=== PATIENT | female | born 1940 | race Caucasian/White ===

== ENCOUNTER 2018-01-19 11:13 | Inpatient (IN) | payer OTHER ==
[~2018-01-19] VITALS: Ht 175.3 cm; Wt 52.7 kg
[2018-01-19] MEDS ORDERED: methylPREDNISolone SOD SUCC 125 MG/2 ML VL ONE (11:19)
[2018-01-19] MEDS ORDERED: cefTRIAXone 1GM/10ml IVPUSH 10 ML IV ONE (12:00)
[2018-01-19] MEDS ORDERED: ALBUTEROL SULF 2.5 MG/0.5ML(0.5%) NEB SOLN HHN ONE (12:00)
[2018-01-19] MEDS ORDERED: IPRATROPIUM BROM 0.5 MG/2.5ML INH SOL HHN ONE (12:00)
[2018-01-19] MEDS ORDERED: methylPREDNISolone SOD SUCC 125 MG/2 ML VL IV ONE (12:30)
[2018-01-19] MEDS ORDERED: SODIUM CHLORIDE 0.9% 1,000 ML IV ONE (12:30)
[2018-01-19 12:37] LABS: Alanine Aminotransferase 30 U/L (13-56); Albumin 3.2 g/dL (3.4-5.0); Anion Gap 8 (5-15); Aspartate Aminotransferase 26 U/L (15-37); BUN/Creatinine Ratio 21.1; Blood Urea Nitrogen 26 mg/dL (7-18); Calcium 8.9 mg/dL (8.5-10.1); Carbon Dioxide 26 mmol/L (21-32); Chloride 102 mmol/L (98-107); GFR African American 54 mL/min; GFR Non-African American 45 mL/min; Glucose 176 mg/dL (74-106); Magnesium 2.1 mg/dL (1.6-2.6); Potassium 4.2 mmol/L (3.5-5.1); Sodium 136 mmol/L (136-145)
[2018-01-19 12:38] LABS: Basophils # (auto) 0 uL; Basophils % (auto) 0.3 % (0.0-2.0); Eosinophils # (auto) 0 uL; Eosinophils % (auto) 0.1 % (0.0-7.0); Hematocrit 37.5 % (36.0-46.0); Hemoglobin 12.4 g/dL (12.2-16.2); Lymphocytes # (auto) 0.4 uL; Lymphocytes % (auto) 3.7 % (10.0-50.0); Mean Corpuscular Hemoglobin 31.9 pg (28.0-32.0); Mean Corpuscular Volume 96.8 fL (80.0-100.0); Monocytes # (auto) 0.3 uL; Monocytes % (auto) 2.5 % (0.0-12.0); Neutrophils # (auto) 9.9 uL; Neutrophils % (auto) 93.4 % (37.0-80.0); Nucleated Red Blood Cells % 0.2 %; Platelet Count (auto) 134 10^3/uL (140-450); Red Blood Cells 3.87 10^6/uL (4.0-5.20); Red Cell Distribution Width 15.6 % (11.8-14.3); White Blood Cell 10.6 10^3/uL (4.4-10.8)
[2018-01-19 12:42] LABS: Alkaline Phosphatase 94 U/L (45-117); Bilirubin, Total 2.7 mg/dL (0.2-1.0)
[2018-01-19 12:56] LABS: Lactic Acid w/Reflex 2.1 mmol/L (0.4-2.0)
[2018-01-19] MEDS ORDERED: ALBUTEROL SULF 2.5 MG/0.5ML(0.5%) NEB SOLN NEB PRN (15:00)
[2018-01-19] MEDS ORDERED: OSELTAMIVIR 75 MG CAP PO ONE (15:00)
[2018-01-19] MEDS ORDERED: NITROGLYCERIN 0.4 MG SL TAB SL PRN (15:00)
[2018-01-19] MEDS ORDERED: DEXTROSE (50%) 50ML SYRG IV PRN (15:00)
[2018-01-19] MEDS ORDERED: MORPHINE SULFATE 4 MG/ML SYR/VIAL IV PRN ×2 (15:00)
[2018-01-19] MEDS ORDERED: PROMETHAZINE HCL 25 MG/ML 1ML IV PRN (15:00)
[2018-01-19] MEDS ORDERED: HYDROcodone-ACET 5/325MG TAB PO PRN (15:00)
[2018-01-19] MEDS ORDERED: ACETAMINOPHEN 500 MG TAB PO PRN (15:00)
[2018-01-19] MEDS ORDERED: LACTULOSE 20Gm/30ML SOLN PO PRN (15:00)
[2018-01-19] MEDS ORDERED: OSELTAMIVIR 30 MG CAP PO ONE (15:15)
[2018-01-19] MEDS: SODIUM CHLORIDE 0.9% 1,000 ML IV SCH (15:20)
[2018-01-19] MEDS: ASPirin 81 mg TAB PO SCH (15:29)
[2018-01-19 15:33] LABS: Urine Amorphous Crystal FEW /hpf (None Seen); Urine Bacteria MOD /hpf (None Seen); Urine Blood Negative /uL (Negative); Urine Mucus FEW (None Seen); Urine Specific Gravity 1.022 (1.001-1.035); Urine WBC 4 /hpf (0 - 5)
[2018-01-19] MEDS: AZITHROMYCIN 500MG/ 250ML 250 ML IV SCH (15:46)
[2018-01-19 17:03] VITALS: BP 85/61
[2018-01-19] MEDS ORDERED: TIOT17SP IN (17:10)
[2018-01-19] MEDS ORDERED: LEV100T PO (17:10)
[2018-01-19] MEDS ORDERED: [UNRECOGNIZED DRUG - CODE] PO (17:10)
[2018-01-19] MEDS ORDERED: MULT1CHW52 PO (17:10)
[2018-01-19] MEDS ORDERED: ALLO300T2 PO (17:10)
[2018-01-19] MEDS ORDERED: DONE10TA40 PO (17:10)
[2018-01-19] MEDS ORDERED: DIGO0.1262 PO (17:10)
[2018-01-19] MEDS ORDERED: PRAV20TA3 PO (17:10)
[2018-01-19] MEDS ORDERED: QUET100T46 PO (17:10)
[2018-01-19] MEDS ORDERED: LORA-154 PO (17:10)
[2018-01-19] MEDS ORDERED: MOME100A INH (17:11)
[2018-01-19] MEDS ORDERED: DIGOXIN 0.125 MG TAB PO ONE (17:30)
[2018-01-19] MEDS ORDERED: ENOXAPARIN SOD 60 MG/0.6 ML SYRINGE SC ONE (17:45)
[2018-01-19] MEDS: ACCU-CHEK COMFORT CURVE STRIP VI SCH (18:26)
[2018-01-19] MEDS: ALBUTEROL SULF 2.5 MG/0.5ML(0.5%) NEB SOLN NEB SCH (18:51)
[2018-01-19] MEDS: IPRATROPIUM BROM 0.5 MG/2.5ML INH SOL NEB SCH (18:51)
[2018-01-19 19:45] VITALS: BP 85/61
[2018-01-19] MEDS: CARVEDILOL 3.125 MG TAB PO SCH (21:49)
[2018-01-19] MEDS ORDERED: OSELTAMIVIR 75 MG CAP PO SCH (22:00)
[2018-01-19 23:11] VITALS: BP 96/63
[2018-01-20 05:39] VITALS: BP 105/77
[2018-01-20] MEDS: ALBUTEROL SULF 2.5 MG/0.5ML(0.5%) NEB SOLN NEB SCH ×5 (06:37→23:49)
[2018-01-20] MEDS: IPRATROPIUM BROM 0.5 MG/2.5ML INH SOL NEB SCH ×5 (06:38→23:49)
[2018-01-20 06:59] LABS: Basophils # (auto) 0 uL; Basophils % (auto) 0.3 % (0.0-2.0); Eosinophils # (auto) 0 uL; Hematocrit 33.2 % (36.0-46.0); Hemoglobin 10.9 g/dL (12.2-16.2); Lymphocytes # (auto) 0.2 uL; Lymphocytes % (auto) 1.9 % (10.0-50.0); Mean Corpuscular Hemoglobin 32.1 pg (28.0-32.0); Mean Corpuscular Hgb Conc. 32.8 g/dL (32.0-36.0); Mean Corpuscular Volume 98.1 fL (80.0-100.0); Monocytes # (auto) 0.6 uL; Monocytes % (auto) 4.9 % (0.0-12.0); Neutrophils # (auto) 11.9 uL; Neutrophils % (auto) 92.9 % (37.0-80.0); Platelet Count (auto) 116 10^3/uL (140-450); Red Blood Cells 3.39 10^6/uL (4.0-5.20); White Blood Cell 12.8 10^3/uL (4.4-10.8)
[2018-01-20 07:36] LABS: Albumin 2.6 g/dL (3.4-5.0); BUN/Creatinine Ratio 25.8; Bilirubin, Total 1.3 mg/dL (0.2-1.0); Calcium 8.6 mg/dL (8.5-10.1); Potassium 4.8 mmol/L (3.5-5.1); Total Protein 6.8 g/dL (6.4-8.2)
[2018-01-20] MEDS: ACCU-CHEK COMFORT CURVE STRIP VI SCH ×4 (07:51→19:02)
[2018-01-20] MEDS: SODIUM CHLORIDE 0.9% 1,000 ML IV SCH ×2 (07:51→17:27)
[2018-01-20 08:27] VITALS: BP 106/50
[2018-01-20] MEDS: cefTRIAXone 1GM/10ml IVPUSH 10 ML IV SCH (09:31)
[2018-01-20] MEDS: DIGOXIN 0.125 MG TAB PO SCH (09:51)
[2018-01-20] MEDS: ASPirin 81 mg TAB PO SCH (09:51)
[2018-01-20] MEDS: AZITHROMYCIN 500MG/ 250ML 250 ML IV SCH (09:52)
[2018-01-20] MEDS: ENOXAPARIN SOD 60 MG/0.6 ML SYRINGE SC SCH ×2 (09:53→21:30)
[2018-01-20] MEDS ORDERED: OSELTAMIVIR 30 MG CAP PO SCH (10:00)
[2018-01-20] MEDS: CARVEDILOL 3.125 MG TAB PO SCH ×2 (10:00→22:00)
[2018-01-20 12:35] VITALS: BP 97/64
[2018-01-20] MEDS: LORazepam 0.5 MG TAB PO PRN ×2 (14:46→21:28)
[2018-01-20 16:39] VITALS: BP_SYST 118; BP_SYST 89; BP_DIAS 71; BP_DIAS 73
[2018-01-20] MEDS: BUDESONIDE (INHALATION) 0.5 MG/2 ML NEB NEB SCH (18:43)
[2018-01-20 22:00] VITALS: BP 98/61
[2018-01-21] VITALS (15 sets, daily range): BP systolic 98–128; BP diastolic 42–79
[2018-01-21] MEDS: TEMAZEPAM 15 MG CAP PO PRN (01:15)
[2018-01-21] MEDS ORDERED: AMIODARONE HCL 150 MG in D5W 5% 100 ML IV ONE (02:00)
[2018-01-21] MEDS ORDERED: AMIODARONE HCL 900 MG in DEXTROSE 500 ML IV SCH (02:00)
[2018-01-21] MEDS ORDERED: AMIODARONE HCL 900 MG IV ONE (02:28)
[2018-01-21] MEDS ORDERED: AMIODARONE HCL (50 MG/ ML) 3 ML VIAL IV ONE (02:28)
[2018-01-21] MEDS: ACCU-CHEK COMFORT CURVE STRIP VI SCH ×4 (06:00→17:28)
[2018-01-21] MEDS: SODIUM CHLORIDE 0.9% 1,000 ML IV SCH ×2 (06:34→20:07)
[2018-01-21] MEDS: ALBUTEROL SULF 2.5 MG/0.5ML(0.5%) NEB SOLN NEB SCH (06:38)
[2018-01-21] MEDS: BUDESONIDE (INHALATION) 0.5 MG/2 ML NEB NEB SCH ×2 (06:38→18:36)
[2018-01-21] MEDS: IPRATROPIUM BROM 0.5 MG/2.5ML INH SOL NEB SCH ×4 (06:38→23:33)
[2018-01-21] MEDS: AMIODARONE HCL 900 MG in DEXTROSE 500 ML IV SCH (08:00)
[2018-01-21] MEDS: cefTRIAXone 1GM/10ml IVPUSH 10 ML IV SCH (08:55)
[2018-01-21] MEDS: CARVEDILOL 3.125 MG TAB PO SCH ×2 (10:00→21:30)
[2018-01-21] MEDS: AZITHROMYCIN 500MG/ 250ML 250 ML IV SCH (10:05)
[2018-01-21] MEDS: ASPirin 81 mg TAB PO SCH (10:09)
[2018-01-21] MEDS: DIGOXIN 0.125 MG TAB PO SCH (10:10)
[2018-01-21] MEDS: MULTIPLE VITAMINS W/ MINERALS TAB PO SCH (10:10)
[2018-01-21] MEDS: CALCIUM W/VIT D (600MG/400IU) TAB PO SCH (10:10)
[2018-01-21] MEDS: PRAVASTATIN SODIUM 20 MG TAB PO SCH (10:11)
[2018-01-21] MEDS: ENOXAPARIN SOD 60 MG/0.6 ML SYRINGE SC SCH ×2 (10:11→21:30)
[2018-01-21] MEDS: QUEtiapine FUMARATE 100 MG TAB PO SCH (10:11)
[2018-01-21] MEDS: ALLOPURINOL 300 MG TAB PO SCH (10:11)
[2018-01-21] MEDS: LEVOTHYROXINE SODIUM 50 MCG TAB PO SCH (10:11)
[2018-01-21] MEDS: LORazepam 0.5 MG TAB PO PRN (12:04)
[2018-01-21] MEDS ORDERED: guaiFENesin 200 MG/10 ML UD PO PRN (16:30)
[2018-01-22] VITALS (8 sets, daily range): BP systolic 105–139; BP diastolic 59–71
[2018-01-22] MEDS ORDERED: FUROSEMIDE 20 MG/2 ML VIAL IV ONE ×2 (00:45→02:00)
[2018-01-22] MEDS: ACCU-CHEK COMFORT CURVE STRIP VI SCH ×4 (02:06→18:07)
[2018-01-22] MEDS: BUDESONIDE (INHALATION) 0.5 MG/2 ML NEB NEB SCH ×2 (06:24→19:20)
[2018-01-22] MEDS: IPRATROPIUM BROM 0.5 MG/2.5ML INH SOL NEB SCH ×3 (06:24→19:20)
[2018-01-22] MEDS: AMIODARONE HCL 900 MG in DEXTROSE 500 ML IV SCH (08:58)
[2018-01-22] MEDS: SODIUM CHLORIDE 0.9% 1,000 ML IV SCH ×2 (09:27→22:47)
[2018-01-22] MEDS: AZITHROMYCIN 500MG/ 250ML 250 ML IV SCH (09:49)
[2018-01-22] MEDS: CALCIUM W/VIT D (600MG/400IU) TAB PO SCH (09:50)
[2018-01-22] MEDS: MULTIPLE VITAMINS W/ MINERALS TAB PO SCH (09:50)
[2018-01-22] MEDS: ENOXAPARIN SOD 60 MG/0.6 ML SYRINGE SC SCH ×2 (09:50→21:12)
[2018-01-22] MEDS: PRAVASTATIN SODIUM 20 MG TAB PO SCH (09:50)
[2018-01-22] MEDS: ASPirin 81 mg TAB PO SCH (09:51)
[2018-01-22] MEDS: CARVEDILOL 3.125 MG TAB PO SCH ×2 (09:51→22:00)
[2018-01-22] MEDS: LEVOTHYROXINE SODIUM 50 MCG TAB PO SCH (09:52)
[2018-01-22] MEDS: ALLOPURINOL 300 MG TAB PO SCH (09:52)
[2018-01-22] MEDS: DIGOXIN 0.125 MG TAB PO SCH (09:52)
[2018-01-22] MEDS: QUEtiapine FUMARATE 100 MG TAB PO SCH (09:52)
[2018-01-22] MEDS: cefTRIAXone 1GM/10ml IVPUSH 10 ML IV SCH (09:53)
[2018-01-22 13:50] LABS: Basophils # (auto) 0 uL; Basophils % (auto) 0.1 % (0.0-2.0); Eosinophils # (auto) 0.1 uL; Eosinophils % (auto) 0.7 % (0.0-7.0); Hematocrit 34.2 % (36.0-46.0); Hemoglobin 11.1 g/dL (12.2-16.2); Lymphocytes # (auto) 0.6 uL; Lymphocytes % (auto) 5.4 % (10.0-50.0); Mean Corpuscular Hemoglobin 31.2 pg (28.0-32.0); Mean Corpuscular Hgb Conc. 32.5 g/dL (32.0-36.0); Monocytes # (auto) 0.7 uL; Monocytes % (auto) 6.8 % (0.0-12.0); Platelet Count (auto) 170 10^3/uL (140-450); Red Blood Cells 3.56 10^6/uL (4.0-5.20); Red Cell Distribution Width 15.5 % (11.8-14.3); White Blood Cell 10.3 10^3/uL (4.4-10.8)
[2018-01-22] MEDS: TEMAZEPAM 15 MG CAP PO PRN (21:13)
[2018-01-23] VITALS (7 sets, daily range): BP systolic 106–120; BP diastolic 56–81
[2018-01-23 05:29] LABS: Basophils # (auto) 0 uL; Basophils % (auto) 0.2 % (0.0-2.0); Eosinophils # (auto) 0.1 uL; Eosinophils % (auto) 1.3 % (0.0-7.0); Lymphocytes # (auto) 0.6 uL; Lymphocytes % (auto) 7.5 % (10.0-50.0); Mean Corpuscular Hemoglobin 32.4 pg (28.0-32.0); Mean Corpuscular Hgb Conc. 33.5 g/dL (32.0-36.0); Mean Corpuscular Volume 96.8 fL (80.0-100.0); Monocytes # (auto) 0.8 uL; Monocytes % (auto) 10.1 % (0.0-12.0); Neutrophils % (auto) 80.9 % (37.0-80.0); Nucleated Red Blood Cells % 0.2 %; Platelet Count (auto) 153 10^3/uL (140-450); Red Blood Cells 3.41 10^6/uL (4.0-5.20); Red Cell Distribution Width 15.2 % (11.8-14.3); White Blood Cell 7.4 10^3/uL (4.4-10.8)
[2018-01-23 05:49] LABS: BUN/Creatinine Ratio 38.4; Calcium 8.3 mg/dL (8.5-10.1); Potassium 3.9 mmol/L (3.5-5.1)
[2018-01-23] MEDS: ACCU-CHEK COMFORT CURVE STRIP VI SCH ×4 (06:00→17:41)
[2018-01-23 06:49] LABS: INR 1.05 (0.9-1.15); Partial Thromboplastin Time 32.3 sec (22.64-33.71); Prothrombin Time 11.5 sec (9.37-12.3)
[2018-01-23] MEDS: BUDESONIDE (INHALATION) 0.5 MG/2 ML NEB NEB SCH ×2 (07:07→19:41)
[2018-01-23] MEDS: IPRATROPIUM BROM 0.5 MG/2.5ML INH SOL NEB SCH ×3 (07:07→19:40)
[2018-01-23] MEDS: cefTRIAXone 1GM/10ml IVPUSH 10 ML IV SCH (09:06)
[2018-01-23] MEDS: ENOXAPARIN SOD 60 MG/0.6 ML SYRINGE SC SCH ×2 (10:00→22:10)
[2018-01-23] MEDS: CARVEDILOL 3.125 MG TAB PO SCH ×2 (10:00→22:00)
[2018-01-23] MEDS: AZITHROMYCIN 500MG/ 250ML 250 ML IV SCH (10:38)
[2018-01-23] MEDS: AMIODARONE HCL 900 MG in DEXTROSE 500 ML IV SCH (10:50)
[2018-01-23] MEDS ORDERED: NALOXONE HCL 0.4 MG/ML VIAL ONE (11:52)
[2018-01-23] MEDS ORDERED: EPINEPHrine HCL 1 MG/1 ML AMP ONE (11:52)
[2018-01-23] MEDS ORDERED: FLUMAZENIL 0.1 MG/ML INJ 10ML MDV IV ONE (11:52)
[2018-01-23] MEDS ORDERED: BENZOCAINE (DENTAL) 20 % SPRAY 60ML MT ONE (11:52)
[2018-01-23] MEDS ORDERED: LIDOCAINE 2%HCL (LOCAL ANESTH.) INJ 20ML MDV ONE ×2 (11:53→11:56)
[2018-01-23] MEDS ORDERED: LIDOCAINE HCL 2% TOP JELLY 5ML TOP ONE (11:53)
[2018-01-23] MEDS ORDERED: MIDAZOLAM HCL 5 MG/ML-1ML VIAL ONE (11:58)
[2018-01-23] MEDS: SODIUM CHLORIDE 0.9% 1,000 ML IV SCH (12:07)
[2018-01-23] MEDS ORDERED: fentaNYL CITRATE 100 MCG/2 ML VL ONE (13:23)
[2018-01-23] MEDS: MIDAZOLAM HCL 5 MG/ML-1ML VIAL ONE ×2 (13:25→13:35)
[2018-01-23] MEDS: ASPirin 81 mg TAB PO SCH (15:00)
[2018-01-23] MEDS: MULTIPLE VITAMINS W/ MINERALS TAB PO SCH (15:01)
[2018-01-23] MEDS: CALCIUM W/VIT D (600MG/400IU) TAB PO SCH (15:01)
[2018-01-23] MEDS: DIGOXIN 0.125 MG TAB PO SCH (15:01)
[2018-01-23] MEDS: PRAVASTATIN SODIUM 20 MG TAB PO SCH (15:02)
[2018-01-23] MEDS: LEVOTHYROXINE SODIUM 50 MCG TAB PO SCH (15:02)
[2018-01-23] MEDS: ALLOPURINOL 300 MG TAB PO SCH (15:02)
[2018-01-23] MEDS: QUEtiapine FUMARATE 100 MG TAB PO SCH (15:02)
[2018-01-24] VITALS (7 sets, daily range): BP systolic 100–137; BP diastolic 45–74
[2018-01-24] MEDS: IPRATROPIUM BROM 0.5 MG/2.5ML INH SOL NEB SCH ×4 (00:15→19:24)
[2018-01-24] MEDS: SODIUM CHLORIDE 0.9% 1,000 ML IV SCH ×2 (04:07→21:38)
[2018-01-24] MEDS: ACCU-CHEK COMFORT CURVE STRIP VI SCH ×5 (06:00→23:49)
[2018-01-24] MEDS: BUDESONIDE (INHALATION) 0.5 MG/2 ML NEB NEB SCH ×2 (06:56→19:25)
[2018-01-24] MEDS: cefTRIAXone 1GM/10ml IVPUSH 10 ML IV SCH (08:57)
[2018-01-24] MEDS: CARVEDILOL 3.125 MG TAB PO SCH ×2 (10:00→21:10)
[2018-01-24] MEDS: AZITHROMYCIN 500MG/ 250ML 250 ML IV SCH (10:36)
[2018-01-24] MEDS: DIGOXIN 0.125 MG TAB PO SCH (10:36)
[2018-01-24] MEDS: LEVOTHYROXINE SODIUM 50 MCG TAB PO SCH (10:36)
[2018-01-24] MEDS: QUEtiapine FUMARATE 100 MG TAB PO SCH (10:37)
[2018-01-24] MEDS: MULTIPLE VITAMINS W/ MINERALS TAB PO SCH (10:37)
[2018-01-24] MEDS: PRAVASTATIN SODIUM 20 MG TAB PO SCH (10:37)
[2018-01-24] MEDS: CALCIUM W/VIT D (600MG/400IU) TAB PO SCH (10:37)
[2018-01-24] MEDS: ASPirin 81 mg TAB PO SCH (10:38)
[2018-01-24] MEDS: ALLOPURINOL 300 MG TAB PO SCH (10:38)
[2018-01-24] MEDS: ENOXAPARIN SOD 60 MG/0.6 ML SYRINGE SC SCH ×2 (10:38→21:10)
[2018-01-24] MEDS: AMIODARONE HCL 200 MG TAB PO SCH (12:12)
[2018-01-24] MEDS: LORazepam 0.5 MG TAB PO PRN (14:34)
[2018-01-24] MEDS: MIRTAZAPINE 30 MG TAB PO SCH (21:08)
[2018-01-24] MEDS: traZODone HCL 50 MG TAB PO SCH (21:09)
[2018-01-25] MEDS: IPRATROPIUM BROM 0.5 MG/2.5ML INH SOL NEB SCH ×4 (00:56→18:53)
[2018-01-25 03:58] VITALS: BP 114/59
[2018-01-25] MEDS: SODIUM CHLORIDE 0.9% 1,000 ML IV SCH ×2 (04:07→17:27)
[2018-01-25] MEDS: ACCU-CHEK COMFORT CURVE STRIP VI SCH ×4 (06:24→23:45)
[2018-01-25 06:29] LABS: Hematocrit 33.2 % (36.0-46.0); Hemoglobin 11.1 g/dL (12.2-16.2); Mean Corpuscular Hemoglobin 32.2 pg (28.0-32.0); Mean Corpuscular Hgb Conc. 33.5 g/dL (32.0-36.0); Mean Corpuscular Volume 96.2 fL (80.0-100.0); Platelet Count (auto) 172 10^3/uL (140-450); Red Blood Cells 3.45 10^6/uL (4.0-5.20); Red Cell Distribution Width 15.2 % (11.8-14.3)
[2018-01-25] MEDS: BUDESONIDE (INHALATION) 0.5 MG/2 ML NEB NEB SCH ×2 (06:34→18:54)
[2018-01-25 06:42] LABS: Albumin 2.3 g/dL (3.4-5.0); BUN/Creatinine Ratio 21.1; Bilirubin, Total 0.7 mg/dL (0.2-1.0); Calcium 8.5 mg/dL (8.5-10.1); Potassium 3.8 mmol/L (3.5-5.1); Total Protein 6.1 g/dL (6.4-8.2)
[2018-01-25 06:43] LABS: Band Neutrophils % (manual) 0; Basophils % (manual) 0 (0.0-2.0)
[2018-01-25 06:44] LABS: Blast Cells 0; Metamyelocytes % 0; Myelocytes % 0; Promyelocytes % 0; Reactive Lymphocytes 0
[2018-01-25 07:30] VITALS: BP 128/53
[2018-01-25] MEDS: ASPirin 81 mg TAB PO SCH (10:06)
[2018-01-25] MEDS: cefTRIAXone 1GM/10ml IVPUSH 10 ML IV SCH (10:06)
[2018-01-25] MEDS: AZITHROMYCIN 500MG/ 250ML 250 ML IV SCH (10:06)
[2018-01-25] MEDS: PRAVASTATIN SODIUM 20 MG TAB PO SCH (10:06)
[2018-01-25] MEDS: AMIODARONE HCL 200 MG TAB PO SCH (10:07)
[2018-01-25] MEDS: CARVEDILOL 3.125 MG TAB PO SCH ×2 (10:07→21:18)
[2018-01-25] MEDS: MULTIPLE VITAMINS W/ MINERALS TAB PO SCH (10:08)
[2018-01-25] MEDS: LEVOTHYROXINE SODIUM 50 MCG TAB PO SCH (10:08)
[2018-01-25] MEDS: CALCIUM W/VIT D (600MG/400IU) TAB PO SCH (10:08)
[2018-01-25] MEDS: ALLOPURINOL 300 MG TAB PO SCH (10:08)
[2018-01-25] MEDS: ENOXAPARIN SOD 60 MG/0.6 ML SYRINGE SC SCH ×2 (10:09→21:18)
[2018-01-25] MEDS: DIGOXIN 0.125 MG TAB PO SCH (10:09)
[2018-01-25] MEDS: QUEtiapine FUMARATE 100 MG TAB PO SCH (10:09)
[2018-01-25 11:39] LABS: Eosinophils % (manual) 4 (0-7); Lymphocytes % (manual) 8 (10.0-50.0); Monocytes % (manual) 11 (0-12)
[2018-01-25 11:57] VITALS: BP 108/52
[2018-01-25] MEDS: LORazepam 0.5 MG TAB PO PRN (14:02)
[2018-01-25 15:51] VITALS: BP 123/47
[2018-01-25 19:45] VITALS: BP 113/55
[2018-01-25] MEDS: traZODone HCL 50 MG TAB PO SCH (21:18)
[2018-01-25] MEDS: MIRTAZAPINE 30 MG TAB PO SCH (21:18)
[2018-01-26] VITALS (7 sets, daily range): BP systolic 103–127; BP diastolic 50–77
[2018-01-26] MEDS: IPRATROPIUM BROM 0.5 MG/2.5ML INH SOL NEB SCH ×4 (00:13→18:53)
[2018-01-26] MEDS: ACCU-CHEK COMFORT CURVE STRIP VI SCH ×3 (05:12→18:00)
[2018-01-26] MEDS: SODIUM CHLORIDE 0.9% 1,000 ML IV SCH (05:12)
[2018-01-26] MEDS: BUDESONIDE (INHALATION) 0.5 MG/2 ML NEB NEB SCH ×2 (05:44→18:54)
[2018-01-26 05:53] LABS: Hematocrit 32.4 % (36.0-46.0); Hemoglobin 10.9 g/dL (12.2-16.2); Mean Corpuscular Hemoglobin 32.2 pg (28.0-32.0); Mean Corpuscular Hgb Conc. 33.5 g/dL (32.0-36.0); Mean Corpuscular Volume 96.1 fL (80.0-100.0); Platelet Count (auto) 180 10^3/uL (140-450); Red Blood Cells 3.37 10^6/uL (4.0-5.20); Red Cell Distribution Width 15.4 % (11.8-14.3)
[2018-01-26 06:05] LABS: Myelocytes % 0
[2018-01-26 06:06] LABS: Blast Cells 0; Promyelocytes % 0; Reactive Lymphocytes 0
[2018-01-26 06:14] LABS: Albumin 2.4 g/dL (3.4-5.0); BUN/Creatinine Ratio 18.3; Bilirubin, Total 0.6 mg/dL (0.2-1.0); Calcium 8.3 mg/dL (8.5-10.1); Potassium 4.1 mmol/L (3.5-5.1); Total Protein 5.9 g/dL (6.4-8.2)
[2018-01-26 07:00] LABS: Band Neutrophils % (manual) 2; Basophils % (manual) 1 (0.0-2.0); Eosinophils % (manual) 1 (0-7); Lymphocytes % (manual) 11 (10.0-50.0); Metamyelocytes % 2; Monocytes % (manual) 10 (0-12)
[2018-01-26] MEDS: AZITHROMYCIN 500MG/ 250ML 250 ML IV SCH (09:44)
[2018-01-26] MEDS: ENOXAPARIN SOD 60 MG/0.6 ML SYRINGE SC SCH ×2 (09:45→22:29)
[2018-01-26] MEDS: guaiFENesin-DM 100/10mg/5ml SYR PO PRN ×2 (09:45→16:53)
[2018-01-26] MEDS: cefTRIAXone 1GM/10ml IVPUSH 10 ML IV SCH (09:45)
[2018-01-26] MEDS: AMIODARONE HCL 200 MG TAB PO SCH (09:46)
[2018-01-26] MEDS: CARVEDILOL 3.125 MG TAB PO SCH ×2 (09:46→22:00)
[2018-01-26] MEDS: ALLOPURINOL 300 MG TAB PO SCH (09:46)
[2018-01-26] MEDS: LEVOTHYROXINE SODIUM 50 MCG TAB PO SCH (09:47)
[2018-01-26] MEDS: ASPirin 81 mg TAB PO SCH (09:47)
[2018-01-26] MEDS: CALCIUM W/VIT D (600MG/400IU) TAB PO SCH (09:47)
[2018-01-26] MEDS: QUEtiapine FUMARATE 100 MG TAB PO SCH (09:47)
[2018-01-26] MEDS: DIGOXIN 0.125 MG TAB PO SCH (09:48)
[2018-01-26] MEDS: PRAVASTATIN SODIUM 20 MG TAB PO SCH (09:48)
[2018-01-26] MEDS: LORazepam 0.5 MG TAB PO PRN (09:49)
[2018-01-26] MEDS: MULTIPLE VITAMINS W/ MINERALS TAB PO SCH (09:50)
[2018-01-26] MEDS: traZODone HCL 50 MG TAB PO SCH (22:28)
[2018-01-26] MEDS: MIRTAZAPINE 30 MG TAB PO SCH (22:29)
== END 2018-01-26 22:44 | disposition short-term general hospital (02) | DRG 166 ==
LOC: ER 11:13 → TELE 11:14 → TELE-CENTR 16:18 → DOU IN ICU 01-21 02:33 → TELE-CENTR 01-26 14:50
PROVIDERS: ADMIT Internal Medicine; ATTEND Family Medicine
PROC: 5A09357 Assistance with Respiratory Ventilation, Less than 24 Consecutive Hours, Continuous Positive Airway Pressure (ICD-10-PCS; principal; 2018-01-19)
PROC: 0B9J8ZZ Drainage of Left Lower Lung Lobe, Via Natural or Artificial Opening Endoscopic (ICD-10-PCS; 2018-01-19)
DX: J18.1 Lobar pneumonia, unspecified organism (principal); J96.01 Acute respiratory failure with hypoxia; N39.0 Urinary tract infection, site not specified; J44.0 Chronic obstructive pulmonary disease with (acute) lower respiratory infection; J44.1 Chronic obstructive pulmonary disease with (acute) exacerbation; I11.0 Hypertensive heart disease with heart failure; I48.91 Unspecified atrial fibrillation; I50.9 Heart failure, unspecified; J70.1 Chronic and other pulmonary manifestations due to radiation; E03.9 Hypothyroidism, unspecified; E78.5 Hyperlipidemia, unspecified; K59.00 Constipation, unspecified; G47.00 Insomnia, unspecified; F32.9 Major depressive disorder, single episode, unspecified; F41.9 Anxiety disorder, unspecified; Z85.118 Personal history of other malignant neoplasm of bronchus and lung; Z87.891 Personal history of nicotine dependence; Z90.2 Acquired absence of lung [part of]; Z92.21 Personal history of antineoplastic chemotherapy; Z92.3 Personal history of irradiation; Z88.8 Allergy status to other drugs, medicaments and biological substances; Z91.041 Radiographic dye allergy status; Z79.899 Other long term (current) drug therapy
CPT/HCPCS: 31645; 36415; 36600; 71045; 71250; 80048; 80053; 80061; 81001; 82550; 82805; 82962; 83036; 83605; 83735; 83880; 84443; 84484; 85007; 85025; 85027; 85610; 85730; 87040; 87070; 87081; 87205; 87804; 93005; 93306; 94640; 94660; 96361; 96365; 96375; 99291; G9035; J0171; J2250; J7060

== ENCOUNTER 2018-01-31 08:15 | Emergency (ER) | payer OTHER ==
[~2018-01-31] VITALS: Ht 175.3 cm; Wt 61.2 kg
[~2018-01-31 08:15] MED LIST: ALLO300T2 PO; DIGO0.1262 PO; LEV100T PO; LORA-154 PO; MOME100A INH; MULT1CHW52 PO; PRAV20TA3 PO; QUET100T46 PO; TIOT17SP IN; [UNRECOGNIZED DRUG - CODE] PO
[2018-01-31 08:18] VITALS: BP 145/53
[2018-01-31] MEDS ORDERED: ASPirin 81 mg TAB PO ONE (08:30)
[2018-01-31 09:50] LABS: Basophils # (auto) 0 uL; Basophils % (auto) 0.4 % (0.0-2.0); Eosinophils # (auto) 0.1 uL; Eosinophils % (auto) 1.1 % (0.0-7.0); Hematocrit 35.4 % (36.0-46.0); Hemoglobin 11.6 g/dL (12.2-16.2); Lymphocytes # (auto) 0.5 uL; Mean Corpuscular Hemoglobin 31.7 pg (28.0-32.0); Mean Corpuscular Hgb Conc. 32.8 g/dL (32.0-36.0); Mean Corpuscular Volume 96.7 fL (80.0-100.0); Monocytes # (auto) 0.6 uL; Monocytes % (auto) 5.7 % (0.0-12.0); Neutrophils # (auto) 8.4 uL; Neutrophils % (auto) 87.8 % (37.0-80.0); Platelet Count (auto) 246 10^3/uL (140-450); Red Blood Cells 3.66 10^6/uL (4.0-5.20); White Blood Cell 9.6 10^3/uL (4.4-10.8)
[2018-01-31 10:04] LABS: INR 1.07 (0.9-1.15); Partial Thromboplastin Time 28.9 sec (22.64-33.71); Prothrombin Time 11.7 sec (9.37-12.3)
[2018-01-31 10:11] LABS: Alanine Aminotransferase 27 U/L (13-56); Albumin 2.7 g/dL (3.4-5.0); Alkaline Phosphatase 74 U/L (45-117); Anion Gap 5 (5-15); Aspartate Aminotransferase 19 U/L (15-37); BUN/Creatinine Ratio 20.2; Bilirubin, Total 0.5 mg/dL (0.2-1.0); Blood Urea Nitrogen 17 mg/dL (7-18); Calcium 8.3 mg/dL (8.5-10.1); Carbon Dioxide 30 mmol/L (21-32); Chloride 102 mmol/L (98-107); GFR African American 84 mL/min; GFR Non-African American 70 mL/min; Glucose 139 mg/dL (74-106); Potassium 4.3 mmol/L (3.5-5.1); Sodium 137 mmol/L (136-145); Total Protein 7.2 g/dL (6.4-8.2)
== END 2018-01-31 10:51 | disposition left against medical advice (07) ==
LOC: EDBD 08:15 → ER 08:15
DX: I11.0 Hypertensive heart disease with heart failure (principal); I50.9 Heart failure, unspecified; E07.89 Other specified disorders of thyroid; I48.91 Unspecified atrial fibrillation; J44.9 Chronic obstructive pulmonary disease, unspecified; E78.5 Hyperlipidemia, unspecified; Z87.891 Personal history of nicotine dependence; Z53.29 Procedure and treatment not carried out because of patient's decision for other reasons
CPT/HCPCS: 36415; 71045; 80053; 83605; 83880; 84484; 85025; 85610; 85730; 87040; 93005; 99291